=== PATIENT | male | born 1930 | race Caucasian/White ===

== ENCOUNTER 2017-04-22 11:09 | Inpatient (IN) ==
[2017-04-22] MEDS ORDERED: ZOFRAN IV ONE (11:33)
[2017-04-22 11:50] LABS: MANUAL DIFF NEEDED? NO
[2017-04-22 11:54] LABS: BASO% 0.4 % (0.0-0.8); EOS# 0.27 X1000 (0.0-0.7); HEMOGLOBIN 13.7 g/dL (14.0-18.0); IMM GRAN# 0.01 X1000 (0.0-0.04); IMM GRAN% 0.1 % (0.0-0.5); LYMPH# 1.09 X1000 (1.2-3.4); LYMPH% 16.3 % (20.5-51.1); MCH 31.4 PG (27-31); MCHC 33.4 g/dL (33-37); MONO# 0.55 X1000 (0.11-0.59); MONO% 8.2 % (1.7-9.3); MPV 11.3 FL (7.4-10.4); PLT 101 X1000 (130-400); RBC 4.36 XMIL (4.7-6.1)
[2017-04-22] MEDS ORDERED: CARDIZEM IV ONE (11:58)
[2017-04-22 12:12] LABS: AGAP 12; ALBUMIN 4.5 g/dL (3.5-5.0); ALKALINE PHOSPHATASE 38 U/L (32-122); BUN 24 mg/dL (8-22); CALCIUM 9.3 mg/dL (8.8-10.2); CHLORIDE 103 mmol/L (98-107); CK PROFILE 109 U/L (24-204); COSMO 283; GOT 33 U/L (10-34); GPT 20 U/L (10-44); MAGNESIUM 2.1 mg/dL (1.5-2.7); POTASSIUM 4.5 mmol/L (3.5-5.1); SODIUM 137 mmol/L (136-145); TCO2 22 mmol/L (25-35)
[2017-04-22 12:16] LABS: INR 1.09 (0.86-1.15); PROTIME 14.4 Seconds (12.1-15.5)
--- NOTE | 2017-04-22 12:48 | EKG Report ---
Test Performed on : 04/22/2017 12:44:04 PM Test Reason : CHEST PAIN Blood Pressure : / mmHG Vent. Rate : 049 BPM Atrial Rate : 049 BPM P-R Int : 230 ms QRS Dur : 088 ms QT Int : 490 ms P-R-T Axes : 044 -15 061 degrees QTc Int : 442 ms Sinus bradycardia. with 1st degree AV block. Nonspecific T wave abnormality Abnormal ECG When compared with ECG of 03-JUN-2015 00:16, OR interval has increased Vent. rate has decreased BY 24 BPM Criteria for Inferior infarct are no longer present Unconfirmed Result
--- NOTE | 2017-04-22 13:13 | Diag Imaging Result Doc PS360 ---
FLAT/UPRIGHT ABD/1 VIEW CHEST - 04/22/2017 INDICATION: WEAKNESS, CONSTIPATION TECHNIQUE: Three views COMPARISON: 06/03/2015 FINDINGS: The chest is clear. There are stable thoracolumbar spine fusion rods. Stable degeneration throughout the spine with no acute bony lesions. There is an IVC filter present at about L2. There is a nonobstructive bowel gas pattern with no free air. There are several phleboliths in the pelvis. IMPRESSION: No acute disease. Electronically signed by Deandre Carter 04/22/2017 1:11 PM
[2017-04-22] MEDS ORDERED: NITROGLYCERIN SL ONE (13:20)
[2017-04-22] MEDS ORDERED: CATAPRES PO ONE (13:20)
--- NOTE | 2017-04-22 13:42 | PROVIDER DOCUMENTATION ---
HPI-General Adult - General Chief Complaint: Weakness Stated Complaint: weakness Time Seen by Provider: 04/22/17 11:18 Source: patient, family, EMS Allergies/Adverse Reactions: Patient Allergies Allergy/AdvReac Type Severity Reaction Status Date / Time No Known Allergies Allergy Verified 04/22/17 11:22 Home Medications: Home Medication List Medication Instructions Recorded Confirmed Last Taken Type Alfuzosin HCl [Alfuzosin HCl ER] 10 mg PO DAILY 04/22/17 04/22/17 Unknown History Carvedilol 12.5 mg PO BID 04/22/17 04/22/17 Unknown History Colesevelam HCl [Welchol] 1,250 mg PO BID 04/22/17 04/22/17 Unknown History Fenofibric Acid D.r. [Trilipix] 135 mg PO DAILY 04/22/17 04/22/17 Unknown History Meloxicam 15 mg PO DAILY 04/22/17 04/22/17 Unknown History SIMVAstatin [Zocor] 40 mg PO HS 04/22/17 04/22/17 Unknown History Sitagliptin Phos/Metformin HCl 1,000 mg PO DAILY 04/22/17 04/22/17 Unknown History [Janumet 50-1,000 mg Tablet] - History of Present Illness -Gen Adult Nature of Presenting Problems: PT ARRIVED VIA EMS WITH C/O WEAKNESS THAT HAS BEEN PRESENT OVER "SEVERAL MONTHS " BUT THIS MORNING BECAME WORSE AND HE WAS UNABLE TO STAND AND AMBULATE AROUND HIS HOUSE. EMS STS FOUL SMELLING URINE WHEN THEY ARRIVED. PT SON AT BEDSIDE. PT ALSO C/O NAUSEA, CONSTIPATION. DENIES CHANGE IN COLOR OF STOOL, SOB, OR ABD PAIN. DENIES FALL OR INJURY. Location of Pain/Injury: reports: none Pain Radiation: reports: no radiation Quality of Pain: reports: none Onset/Duration: reports: this morning Timing: reports: still present Associated Symptoms: reports: constipation, fatigue, genitourinary problems, nausea, weakness. denies: anxiety, arm pain, back/neck pain, chest pain, cough , diaphoresis, diarrhea, dizziness, EENT symptoms, fever/chills, headaches, heartburn, joint pain, muscle aches, rash, shortness of breath, swelling/mass in abdomen, syncope, vomiting Similar Symptoms Previously?: Yes (SON STS SIMILAR SX WITH UTI) Recently seen or treated by another doctor?: No Review of Systems - Adult - REVIEW OF SYSTEMS - ADULT Constitutional: reports: magdalena. denies: chills, fever Eyes: reports: no symptoms reported. denies: discharge, blurred vision, double vision Ears, Nose, Mouth & Throat: reports: no symptoms reported. denies: tinnitus, sinus problem, throat pain Cardiovascular: reports: no symptoms reported. denies: chest pain, palpitations , syncope Respiratory: reports: no symptoms reported. denies: cough, dyspnea on exertion , shortness of breath Gastrointestinal: reports: see HPI, constipation, nausea. denies: abdominal pain, hematemesis, diarrhea, difficulty swallowing, frequent heartburn, poor appetite, rectal bleeding, vomiting Genitourinary: reports: frequency, hematuria, incontinence, urgency Musculoskeletal: reports: see HPI, muscle weakness. denies: muscle aches Integumentary: reports: no symptoms reported. denies: hives, rash, skin sores/ ulcer Neurological: reports: no symptoms reported. denies: dizziness/vertigo, headache/migraines, loss of balance, slurred speech, syncope, tremors Psychiatric: reports: no symptoms reported Endocrine: reports: no symptoms reported Hematologic/Lymphatic: reports: no symptoms reported Allergic/Immunologic: reports: no symptoms reported All Other Systems: Reviewed and Negative Past History - Adult - PAST MEDICAL HISTORY-ADULT Review of Records: reports: Old Records Reviewed, Nursing Assessment Review, Medications Reviewed, Social history reviewed & non-contributory. Major Childhood Illnesses: reports: denies history Cardiovascular: reports: HTN, hyperlipidemia Genitourinary: reports: incontinence, other (BPH) Musculoskeletal: reports: neck/back injury Endocrine/Immune: reports: Diabetes Diabetes Type: Type 2 - PRIOR SURGERIES/PROCEDURES Surgical/Procedure History: reports: back/neck Physical Exam-General - PHYSICAL EXAM-ADULT Initial Vital Signs Reviewed: Yes - CONSTITUTIONAL General Appearance: appears well, alert, no apparent distress. negative: anxious, lethargic - EYES Eyes: PERRL/EOMI - HEAD, EARS, NOSE, MOUTH & THROAT HENMT: normocephalic/atraumatic, moist mucous membranes, normal ENT inspection - NECK Neck: non-tender, full range of motion, supple, normal inspection - RESPIRATORY Respiratory: chest non-tender, lungs clear, normal breath sounds, no pleuratic chest pain, no respiratory distress, no accessory muscle use. negative: crackles, rales, rhonchi, wheezing - CARDIOVASCULAR Cardiovascular: normal peripheral pulses, bradycardia - GASTROINTESTINAL (ABDOMEN) Abdominal Exam: normal bowel sounds, non tender, soft, no organomegaly, no pulsatile mass. negative: distended, guarding, rigid, rebound, tenderness, hernia, mass - LYMPHATIC Lymphatic: no adenopathy - MUSCULOSKELETAL Back Exam: normal inspection, no CVA tenderness, no vertebral tenderness. negative: decreased range of motion, muscle spasm, vertebral tenderness Extremity: normal range of motion, non-tender - SKIN Integumentary: normal color, normal turgor, warm/dry. negative: cyanosis, diaphoresis, ecchymosis, rash - NEUROLOGIC Neurologic: grossly normal, no motor/sensory deficits. negative: aphasia, facial droop - PSYCHIATRIC Psych/Mental Status: normal mood/affect, oriented x 3 Progress - PLAN OF CARE/RESULTS Progress/Plan/Lab Results: Vital Signs - 8 hr 04/22/17 11:10 Temperature 97.6 F Pulse Rate 57 L Respiratory Rate 20 Blood Pressure 213/85 O2 Sat by Pulse Oximetry 97 Laboratory Results - last 24 hr 04/22/17 04/22/17 04/22/17 11:02 11:02 11:02 WBC RBC Hgb Hct MCV MCH MCHC RDW Std Deviation Plt Count MPV Immature Gran % (Auto) Neut % (Auto) Lymph % (Auto) [place] % (Auto) Eos % (Auto) Baso % (Auto) Immature Gran # (Auto) Neut # (Auto) Lymph # (Auto) [place] # (Auto) Eos # (Auto) Baso # (Auto) PT INR APTT (Factor Assay) D-Dimer Sodium 137 Potassium 4.5 Chloride 103 Carbon Dioxide 22 L Anion Gap 12 BUN 24 H Creatinine 1.0 Estimated GFR/1.73 m2 > 60 BUN/Creatinine Ratio 24 Glucose 182 H Calculated Osmolality 283 Calcium 9.3 Magnesium 2.1 Total Bilirubin 0.70 AST 33 ALT 20 Alkaline Phosphatase 38 Creatine Kinase 109 Troponin T < 0.010 Saa-[id number] Pept 633 H Total Protein 7.0 Albumin 4.5 Globulin 3.0 Albumin/Globulin Ratio 2.0 04/22/17 04/22/17 11:02 11:02 WBC 6.67 RBC 4.36 L Hgb 13.7 L Hct 41.0 L MCV 94.0 MCH 31.4 H MCHC 33.4 RDW Std Deviation 13.5 Plt Count 101 L MPV 11.3 H Immature Gran % (Auto) 0.1 Neut % (Auto) 71.0 Lymph % (Auto) 16.3 L [place] % (Auto) 8.2 Eos % (Auto) 4.0 Baso % (Auto) 0.4 Immature Gran # (Auto) 0.01 Neut # (Auto) 4.72 Lymph # (Auto) 1.09 L [place] # (Auto) 0.55 Eos # (Auto) 0.27 Baso # (Auto) 0.03 PT 14.4 INR 1.09 APTT (Factor Assay) 28.0 D-Dimer 2.51 H Sodium Potassium Chloride Carbon Dioxide Anion Gap BUN Creatinine Estimated GFR/1.73 m2 BUN/Creatinine Ratio Glucose Calculated Osmolality Calcium Magnesium Total Bilirubin AST ALT Alkaline Phosphatase Creatine Kinase Troponin T Gbt-H-Qcyurljawve Pept Total Protein Albumin Globulin Albumin/Globulin Ratio Orders Category Date Time Status Cardiac Monitoring DIRECTED Care 04/22/17 11:32 Active ANGIOGRAM/PULMONARY ARTERIES [CT] Stat Exams 04/22/17 13:16 Ordered FLAT/UPRIGHT ABD/1 VIEW CHEST [RAD] Stat Exams 04/22/17 11:59 Completed CBC WITH ELECTRONIC DIFF [HEME] Stat Lab 04/22/17 11:02 Completed CK PROFILE [SP CHEM] Stat Lab 04/22/17 11:02 Completed COMPREHENSIVE METABOLIC PANEL [CHEM] Stat Lab 04/22/17 11:02 Completed D-DIMER PL [COAG] Stat Lab 04/22/17 11:02 Completed MAGNESIUM [CHEM] Stat Lab 04/22/17 11:02 Completed PRO B-NATRIURETIC PEPTIDE Stat Lab 04/22/17 11:02 Completed PR[address]IME WITH INR PL [COAG] Stat Lab 04/22/17 11:[address] [COAG] Stat Lab 04/22/17 11:02 Completed TROPONIN T Stat Lab 04/22/17 11:[address] W/POSS RFLX CULT [URINALYSIS] Stat Lab 04/22/17 11:34 Uncollected Clonidine [Catapres] Med 04/22/17 13:20 Discontinued 0.1 mg PO NOW ONE Diltiazem [Cardizem] Med 04/22/17 11:58 Discontinued 20 mg IV NOW ONE Nitroglycerin Sl [Nitroglycerin] Med 04/22/17 13:20 Discontinued 0.4 mg SL NOW ONE Ondansetron [Zofran] Med 04/22/17 11:33 Discontinued 4 mg IV NOW ONE EKG [EKG] Stat Ther 04/22/17 11:32 Draft Result Diagrams: 04/22/17 11:02 04/22/17 11:02 - REASSESSMENT Reassessment #1 Time Reassessed: 11:55 (SPOKE WITH DR. HERNANDEZ RE: PT HTN. CARDIZEM ORDERED PER MD.) Status: unchanged Reassessment #2 Time Reassessed: 13:00 (SPOKE WITH DR. HERNANDEZ RE: PT CONDITION AND LABS. MD EVALUATED PT AND GAVE ORDERS FOR BP MEDS, CT.) Status: unchanged - XRAY 1 XRAY Study: Chest, Abdomen Impression: Normal, See EMR Report XRAY Interpretation: NO ACUTE FINDINGS. IVC FILTER PRESENT.-DR. WHARTON - CT/MRI 1 CT Study: Angiogram (PULM ARTERIES) Impression: See EMR Report CT Results: BORDERLINE CARDIOMEGALY. OTHER NORMAL.-DR. WHARTON - CONSULTS/PCP/HOSPITALIST Notification #1 *Consult/PCP/Hospitalist*: DR. VILLA Time Discussed: 15:46 Reason/Comments: MD FAUSTO WILL COME SEE IN ER AND ADMIT. Consult Disposition: Will see in ED Departure - Departure Date of Disposition Decision: 04/22/17 Time of Disposition Decision: 15:44 DIAGNOSIS: Weakness Disposition: ADMITTED INPATIENT 09 Certified Medical Emergency: Emergent Condition: Stable Referrals and Follow-Ups: None,PCP [Primary Care Provider] - - Critical Care Note This patient required my direct & personal management of CC.: No
--- NOTE | 2017-04-22 13:54 | Diag Imaging Result Doc PS360 ---
ANGIOGRAM/PULMONARY ARTERIES - 04/22/2017 INDICATION: WEAKNESS, ELEVATED D-DIMER TECHNIQUE: Axial CT images were obtained after administering intravenous contrast. Coronal MIP images were generated. A CT dose reduction protocol was used. COMPARISON: None FINDINGS: There is extensive patient motion artifact. No large pulmonary embolism. There is borderline cardiomegaly. There is some dependent atelectasis. No infiltrates. There are extensive fusion rods along the thoracolumbar spine. No hardware complications. No acute bony lesions. IMPRESSION: Perhaps borderline cardiomegaly, but no acute disease. Electronically signed by Deandre Carter 04/22/2017 1:51 PM
[2017-04-22 14:10] LABS: URINE CULTURE PL NEEDED? NO
[2017-04-22 14:29] LABS: BILIRUBIN URINE NEGATIVE (NEGATIVE); BLOOD URINE TRACE (NEGATIVE); CLARITY CLEAR (CLEAR); COLOR YELLOW; LEUKOCYTES URINE NEGATIVE (NEGATIVE); NITRITE URINE NEGATIVE (NEGATIVE); PH URINE 6.5; PROTEIN URINE 2+(100 mg/dL) mg/dL (NEGATIVE); URINE EPITHELIAL CELLS <10 /HPF (<10); URINE RBC <10 /HPF (<10); URINE SOURCE CLEAN CATCH; URINE WBC <10 /HPF (<10); UROBILINOGEN URINE NORMAL
[2017-04-22] MEDS ORDERED: LASIX IV ONE (15:27)
--- NOTE | 2017-04-22 16:50 | Diag Imaging Result Doc PS360 ---
EXAM: HEAD W/O CONTRAST HISTORY: weakness,dizziness,htn TECHNIQUE: Images were obtained from the skull base to vertex without IV contrast as per standard protocol. COMPARISON: None. FINDINGS: There are no extra-axial collections. There is no evidence for acute infarct or hemorrhage. There is no midline shift or mass effect. There is no hydrocephalus. There is diffuse cerebral atrophy. There are vascular calcifications. There is patchy hypodensity throughout the deep white matter which is nonspecific in appearance but likely related to microvascular disease. IMPRESSION: No acute intracranial abnormality is appreciated. Atrophy and microvascular disease. Electronically signed by Nicole Couch 04/22/2017 4:48 PM
--- NOTE | 2017-04-22 16:51 | HISTORY AND PHYSICAL ---
PRIMARY CARE PHYSICIAN: Sammy Cheema MD. CHIEF COMPLAINT: Weakness, dizziness, unable to stand or ambulate. HISTORY OF PRESENTING ILLNESS: This is an 86-year-old male who presented to [facility] ER with complaints of generalized weakness, dizziness, and this a.m. states that he was unable to stand up and unable to ambulate independently , so he called 911 for evaluation. Workup showed on arrival a blood pressure of 213/85 and a D- dimer of 2.51. A pulmonary arteriogram was obtained that showed no large pulmonary embolism, borderline cardiomegaly, but no acute disease, so he is being admitted for further evaluation and treatment. PAST MEDICAL HISTORY: Hypertension, hyperlipidemia, diabetes type 2. PAST SURGICAL HISTORY: Back surgery and IVC filter placement. FAMILY HISTORY: Noncontributory. SOCIAL HISTORY: Currently lives alone. Denied any tobacco, alcohol, or illicit drug use. ALLERGIES: He has no known drug allergies. HOME MEDICATIONS: He takes alfuzosin 10 mg p.o. daily. Carvedilol 12.5 mg p.o. b.i.d. Welchol 1250 mg p.o. b.i.d. Fenofibric acid 135 mg p.o. daily. Meloxicam 15 mg p.o. daily. Simvastatin 40 mg p.o. at bedtime. Janumet one p.o. daily. LABORATORY AND IMAGING: Showed a white blood cell count of 6.67, hemoglobin 13.7, hematocrit 41, platelets 101,000. PT and INR were 14.4 and 1.09 with a D-dimer of 2.51. Sodium 137, potassium 4.5, chloride 103, CO2 of 22, BUN 24, creatinine 1.0, glucose 182. Magnesium 2.1. Creatine kinase 109 with a troponin of less than 0.010, proBNP of 633. Urinalysis was negative. Abdomen x-ray showed no acute disease. Pulmonary arteriogram showed an impression of perhaps borderline cardiomegaly, but no acute disease. No large pulmonary embolism. He had an EKG that showed sinus bradycardia with a first-degree AV block at 49. REVIEW OF SYSTEMS: He denied any fever, chills, or blurred vision. He was positive for dizziness, generalized weakness, inability to stand or ambulate independently. He denied any abdominal pain, constipation, diarrhea, burning or hurting with urination. PHYSICAL EXAMINATION: VITAL SIGNS: Temperature 97.6 degrees, pulse 57, respirations 20, blood pressure 213/85, saturating 97% on room air. GENERAL: This is an 86-year-old male who is sitting up in the bed. Is noted to be hard of hearing, but answers questions appropriately. HEENT: Normocephalic and atraumatic. Pupils are equal, round, and reactive to light. The extraocular movements are intact. Oropharynx and nares are clear. NECK: Supple. LUNGS: Clear to auscultation bilaterally, with equal lung expansion and chest wall movement. HEART: Regular rate and rhythm. No murmurs, rubs, or gallops. ABDOMEN: Soft, nontender, nondistended. Bowel sounds are present x4 quadrants. EXTREMITIES: No clubbing, cyanosis, or edema. NEUROLOGIC: The cranial nerves 2-12 appear grossly intact. ASSESSMENT: 1. Generalized weakness. 2. Dizziness. 3. Elevated D-dimer. 4. Hypertension. 5. Diabetes type 2. PLAN: It is noted in the emergency room that he has had the following 1-time doses: 1. Clonidine 0.1 mg x1. 2. Cardizem 20 mg IV x1. 3. Lasix 40 mg IV x1. 4. Nitroglycerin 0.4 mg sublingually x1. 5. Zofran 4 mg IV x1. We will also check a CT of the head without contrast. He will be admitted to the medical unit, placed on telemetry, diabetic diet, and physical therapy. We will review the CT of the head results once the test is obtained. Recheck a CBC and a BMP. We will monitor his vital signs q.4 hours and we will do a bilateral venous Doppler of his lower extremities in the a.m. Pt is a full code. Dictated by CATHI Sandoval for Asael Almendarez MD cc: CATHI Sandoval MD Jay Pohl, MD I have seen and examined patient and I agree with the outline plan. Severe Hypertension Syncope. rkq MTDD
[2017-04-22] MEDS ORDERED: ZOFRAN IV PRN (17:17)
[2017-04-22] MEDS: NS 1,000 ML IV SCH (18:17)
[2017-04-22] MEDS: WELCHOL PO SCH (20:08)
[2017-04-22] MEDS: COREG PO SCH (20:08)
[2017-04-22] MEDS: ZOCOR PO SCH (20:08)
[2017-04-23 06:29] LABS: MANUAL DIFF NEEDED? NO
[2017-04-23 06:36] LABS: BASO% 0.3 % (0.0-0.8); EOS# 0.18 X1000 (0.0-0.7); EOS% 2.4 % (0.0-10.0); HEMATOCRIT 41.3 % (42.0-52.0); HEMOGLOBIN 13.7 g/dL (14.0-18.0); IMM GRAN# 0.03 X1000 (0.0-0.04); IMM GRAN% 0.4 % (0.0-0.5); LYMPH# 1.19 X1000 (1.2-3.4); LYMPH% 15.8 % (20.5-51.1); MCH 31.4 PG (27-31); MCHC 33.2 g/dL (33-37); MCV 94.5 FL (81-99); MONO# 0.72 X1000 (0.11-0.59); MONO% 9.6 % (1.7-9.3); MPV 10.9 FL (7.4-10.4); NEUT% 71.5 % (42.2-75.2); PLT 102 X1000 (130-400); RBC 4.37 XMIL (4.7-6.1)
[2017-04-23] MEDS: NS 1,000 ML IV SCH (06:49)
[2017-04-23 06:58] LABS: AGAP 10; BUN 24 mg/dL (8-22); CALCIUM 9.1 mg/dL (8.8-10.2); CHLORIDE 103 mmol/L (98-107); COSMO 284; POTASSIUM 3.8 mmol/L (3.5-5.1); SODIUM 139 mmol/L (136-145); TCO2 26 mmol/L (25-35)
[2017-04-23] MEDS: JANUVIA PO SCH (09:08)
[2017-04-23] MEDS: UROXATRAL PO SCH (09:09)
[2017-04-23] MEDS: WELCHOL PO SCH ×2 (09:09→21:50)
[2017-04-23] MEDS: GLUCOPHAGE PO SCH (09:09)
[2017-04-23] MEDS: TRICOR PO SCH (09:09)
[2017-04-23] MEDS: COREG PO SCH (09:10)
[2017-04-23] MEDS ORDERED: COREG PO SCH (09:31)
[2017-04-23] MEDS ORDERED: PRINIVIL PO SCH (09:45)
--- NOTE | 2017-04-23 10:51 | Extremity Venous Study ---
EXAM: Venous U/S Left Leg HISTORY: elevated d-dimer TECHNIQUE: Venous ultrasound of the left lower extremity with compression and color Doppler COMMENT: There is incompressibility of the left common femoral, femoral, popliteal and peroneal veins which do demonstrate color Doppler flow. There is also thrombosis of the saphenofemoral junction but not the great saphenous vein. IMPRESSION: Chronic deep venous thrombosis without occlusion as described. Electronically signed by Alejandro Marmolejo 04/23/2017 10:49 AM
--- NOTE | 2017-04-23 15:08 | PROGRESS NOTE ---
DATE: 04/23/2017 Today Mr. Collier refers to be feeling a little stronger. Mr. Collier got admitted yesterday after he has been complaining of some generalized weakness for some time associated with an episode that he described as falling down, felt a little dizzy and then fell down after he stood up to go to the restroom. Upon presentation, his blood pressures were very high, pulse was low. Patient was admitted for further medical care. Today he refers to be doing a lot better. His vitals currently blood pressure is 167/72, pulse is 61, respirations 18, temperature 97.6 degrees. Of note patient's blood pressure in supine was 155/80, pulse was 64 and his blood pressure standing is 127/56. There is about 28 difference in the systolic blood pressure. The pulse did not change much I guess because patient is on beta fina. GENERAL EXAM: Mr. Collier is an 86-year-old very pleasant, male. He is in bed, not seemingly distressed.HEENT: Mucosa was slightly dry. Anicteric. Acyanotic. Neck: Neck is supple. Chest: Good air entry bilateral. No crepitations. No rhonchi. Cardiovascular: Regular rate and rhythm. No murmurs. Abdomen: Soft, nontender. Extremities: No pedal edema. VICE PRESIDENT OF ENGINEERING: Patient is awake and alert and oriented. There is no focal neurological deficit. LABORATORY DATA: WBC is 7.51, hemoglobin is 13.7, platelet count of 102,000. Chemistry is reviewed. Completely normal. Glucose is 135, and his random glucose have slightly been on the higher end. Doppler ultrasound shows chronic venous thrombosis without occlusion of the left. ASSESSMENT: 1. Syncope likely due to underlying orthostatic hypotension as well as bradycardia. 2. Bradycardia on presentation. Patient is on a beta fina (carvedilol). 3. Orthostatic hypotension. There is a significant 28 difference when patient stands up, that it drops and this is after patient has been given some fluid. So we are going to continue with the IV fluids. We will be discontinuing the carvedilol. Hopefully the patient continues to show improvement. 4. Uncontrolled hypertension. The patient was on carvedilol 12.5. He does not really seem to have any cardiac history and because of the bradycardia I have discontinued the carvedilol and started him on lisinopril and will titrate it accordingly. 5. Diabetes mellitus controlled. 6. 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 The patient has a history of IVC filter placed a time ago and probably this is just a manifestation of an old DVT. We are not going to treat it. cc: Asael Almendarez MD
[2017-04-23] MEDS ORDERED: NORVASC PO ONE (21:09)
[2017-04-23] MEDS ORDERED: PRINIVIL PO ONE (21:10)
[2017-04-23] MEDS ORDERED: APRESOLINE IV PRN (21:10)
[2017-04-23] MEDS: ZOCOR PO SCH (21:50)
[2017-04-24] MEDS: NS 1,000 ML IV SCH ×2 (00:44→14:17)
[2017-04-24 07:03] LABS: AGAP 10; BUN 20 mg/dL (8-22); CALCIUM 8.6 mg/dL (8.8-10.2); CHLORIDE 107 mmol/L (98-107); COSMO 284; POTASSIUM 3.6 mmol/L (3.5-5.1); SODIUM 140 mmol/L (136-145); TCO2 23 mmol/L (25-35)
[2017-04-24] MEDS: GLUCOPHAGE PO SCH (08:53)
[2017-04-24] MEDS: WELCHOL PO SCH ×2 (08:56→20:10)
[2017-04-24] MEDS: PRINIVIL PO SCH (08:56)
[2017-04-24] MEDS: NORVASC PO SCH (08:56)
[2017-04-24] MEDS: TRICOR PO SCH (08:56)
[2017-04-24] MEDS: JANUVIA PO SCH (08:56)
[2017-04-24] MEDS: UROXATRAL PO SCH (08:57)
--- NOTE | 2017-04-24 13:06 | PROGRESS NOTE ---
DATE: 04/24/2017 SUBJECTIVE: Today Mr. Collier refers to be doing a lot better. Continues to be slightly weak but he feels a whole lot stronger than before. OBJECTIVE: Vital signs: Blood pressure is 166/70, pulse of 99, I am not sure if this pulse is correct . When I checked it myself it was 64. Respiration is 18, temperature 97.5 degrees. General: Mr. Collier 86-year-old male, he is in bed, does not seem to be in any remarkable distress. HEENT: Mucosa is pink and moist. Anicteric. Acyanotic. Neck: Supple. Chest: Good air entry bilaterally. No crepitations. No rhonchi. Cardiovascular: Regular rate and rhythm. Abdomen: Soft, nontender. Extremities: No pedal edema. CHANNELING MACHINE OPERATOR: Patient is awake and alert and oriented x4. There is no focal neurological deficit. LABORATORY DATA: Chemistries reviewed completely normal. Review of physical therapy notes showed that the patient was able to walk about 25 feet full weightbearing with some contact guard assistance. Assistive device use was a front wheel walker. It was noted that the patient shuffles his feet when ambulating and recommended that patient may go to rehab or physical therapy following his hospital stay. ASSESSMENT: 1. Syncope at home likely due to underlying orthostatic hypotension as well as bradycardia. Both of them have been improved and patient is doing a lot better. 2. Bradycardia on presentation which we attribute this to the beta fina that the patient was on. This was discontinued and pulse has significantly improved. 3. Orthostatic hypotension secondary to volume depletion improved. 4. Uncontrolled hypertension. Blood pressure is a whole lot better today with the changes that we made in the medication. We however ordered lab work and a duplex ultrasound of the renal arteries to make sure we are not missing any secondary cause of hypertension. 5. Diabetes mellitus controlled. 6. Chronic deep vein thrombosis on the left leg. No need for acute anticoagulation. So in general Mr. Collier is relatively stable. Blood pressure is now corrected and pulse is better and hydration has improved. He is ready for discharge. However from physical therapy note he is still weak to be at home on his own so we recommend he goes to a rehab for adequate physical rehabilitation and get his strength back. We have consulted social media strategist to get us a placement for him. cc: Asael Almendarez MD
[2017-04-24] MEDS: ZOCOR PO SCH (20:10)
[2017-04-25] MEDS: NS 1,000 ML IV SCH ×3 (06:24→20:14)
[2017-04-25 06:25] LABS: HEMOGLOBIN A1C 5.9 % (4.8-6.0)
[2017-04-25 06:45] LABS: HDL 42 mg/dL (35-55); LDL 56 mg/dL; TRIGLYCERIDES 145 mg/dL (39-160); VLDL 29 mg/dL
[2017-04-25] MEDS: UROXATRAL PO SCH (09:11)
[2017-04-25] MEDS: PRINIVIL PO SCH (09:12)
[2017-04-25] MEDS: GLUCOPHAGE PO SCH (09:12)
[2017-04-25] MEDS: JANUVIA PO SCH (09:12)
[2017-04-25] MEDS: NORVASC PO SCH (09:13)
[2017-04-25] MEDS: WELCHOL PO SCH ×2 (09:13→20:14)
[2017-04-25] MEDS: TRICOR PO SCH (09:13)
--- NOTE | 2017-04-25 10:40 | Diag Imaging Result Doc PS360 ---
EXAM: DUPLEX RENAL ARTY OR VEIN LMTD HISTORY: severe hypertension TECHNIQUE: COMPARISON: None. FINDINGS: The right kidney measures 13.1 x 5.9 x 7.1 cm. Normal echotexture and cortical thickness. No hydronephrosis. Segmental arterial pressures obtained. Right renal artery ratio is 1.1. Resistive index is 0.72. The left kidney measures 13.7 x 6.3 x 6.3 cm. Normal echotexture. No hydronephrosis. Arterial pressures obtained. Left renal artery ratio is 1.3. Resistive index is 0.73. IMPRESSION: No evidence of renal artery stenosis. Electronically signed by Almas Upton 04/25/2017 10:38 AM
--- NOTE | 2017-04-25 11:39 | PROGRESS NOTE ---
DATE: 04/25/2017 SUBJECTIVE: Mr. Collier refers to be doing a lot better today. He is still week but, as per the patient, he feels stronger. As per the nurses, this patient has been having confusion mostly during the night. When I evaluated this patient today, he was alert. He was oriented x3. He knows he is in the hospital. He does not remember which one though. OBJECTIVE: Vital Signs: Temperature 97.8 degrees, pulse 66, respiratory rate 17, blood pressure 159/62, oxygen saturation 99% on room air. HEENT: Head normocephalic. No trauma. PERRLA. Neck supple. No JVD. No masses. Central trachea. Chest: Clear to auscultation. No wheezing. No rales. Cardiovascular: RRR. Abdomen soft, nontender. Extremities: No edema. No clubbing. No cyanosis. Neurologic: The patient is alert. She is oriented x3 but apparently she has been having confusion mostly during the night. No focal neurological deficits. LABORATORY DATA: Hemoglobin A1c 5.9. ASSESSMENT AND PLAN: 1. Syncope at home likely due to underlying orthostatic hypotension and bradycardia. Both of them have been improved and the patient is doing better. 2. Bradycardia as above. Probably, this was related to a beta fina and this medication has been discontinued. 3. Orthostatic hypotension secondary to volume depletion, improved. 4. Uncontrolled hypertension. Continue with the same management. 5. Renal artery ultrasound has been done, pending report. 6. Type 2 diabetes, controlled. 7. 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 No need for anticoagulation at this moment. This patient is doing a whole lot better, however, from the note from physical therapy, he is still weak to be at home by himself and they recommended to send this patient to a rehab center so he can get stronger. tree and shrub worker is on board. We will continue to monitor this patient. cc: Hector Grace MD
[2017-04-25] MEDS: ZOCOR PO SCH (20:14)
[2017-04-26] MEDS: RESTORIL PO PRN ×2 (02:42→21:35)
[2017-04-26 06:25] LABS: MANUAL DIFF NEEDED? NO
[2017-04-26 06:42] LABS: BASO% 0.3 % (0.0-0.8); EOS# 0.19 X1000 (0.0-0.7); EOS% 2.8 % (0.0-10.0); HEMATOCRIT 38.8 % (42.0-52.0); HEMOGLOBIN 13.1 g/dL (14.0-18.0); IMM GRAN# 0.03 X1000 (0.0-0.04); IMM GRAN% 0.4 % (0.0-0.5); LYMPH# 1.07 X1000 (1.2-3.4); MCH 31.8 PG (27-31); MCHC 33.8 g/dL (33-37); MCV 94.2 FL (81-99); MONO# 0.62 X1000 (0.11-0.59); MONO% 9.3 % (1.7-9.3); MPV 11.2 FL (7.4-10.4); NEUT% 71.2 % (42.2-75.2); PLT 97 X1000 (130-400); RBC 4.12 XMIL (4.7-6.1)
[2017-04-26 06:56] LABS: AGAP 12; BUN 17 mg/dL (8-22); CALCIUM 8.7 mg/dL (8.8-10.2); CHLORIDE 107 mmol/L (98-107); COSMO 283; POTASSIUM 3.4 mmol/L (3.5-5.1); SODIUM 140 mmol/L (136-145); TCO2 21 mmol/L (25-35)
[2017-04-26] MEDS ORDERED: KLOR-CON PO ONE (07:19)
[2017-04-26] MEDS: JANUVIA PO SCH (07:49)
[2017-04-26] MEDS: NS 1,000 ML IV SCH ×2 (07:49→21:35)
[2017-04-26] MEDS: GLUCOPHAGE PO SCH (07:49)
[2017-04-26] MEDS ORDERED: DULCOLAX PR ONE (07:56)
[2017-04-26] MEDS: UROXATRAL PO SCH (08:45)
[2017-04-26] MEDS: NORVASC PO SCH (08:45)
[2017-04-26] MEDS: MIRALAX PO SCH (08:45)
[2017-04-26] MEDS: WELCHOL PO SCH ×2 (08:45→21:35)
[2017-04-26] MEDS: TRICOR PO SCH (08:45)
[2017-04-26] MEDS: PRINIVIL PO SCH (08:45)
--- NOTE | 2017-04-26 10:45 | PROGRESS NOTE ---
DATE: 04/26/2017 SUBJECTIVE: Mr. Collier refers to be doing a lot a lot better today. He was complaining of constipation but after MiraLAX per mouth and Dulcolax suppository, he had a large bowel movement. He is not complaining of chest pain or shortness of breath. He is oriented x3. He is complaining of mild back soreness. OBJECTIVE: Vital Signs: Temperature 98.7 degrees, pulse 72, respiratory rate 20, blood pressure 150/67, oxygen saturation 98 on room air. HEENT: Normocephalic. No trauma. PERRLA. Neck: Supple. No JVD. No masses. Central trachea. Chest: Clear to auscultation. No wheezing. No rales. Cardiovascular: Regular rate and rhythm. Abdomen: Soft, nontender, nondistended. No hepatosplenomegaly. Extremities: No edema. No clubbing. No cyanosis. Neurological: The patient is alert and oriented x3. But apparently he has been on and off confused during the night. No focal neurological deficits. LABORATORY: WBC 6.6, hemoglobin 13.1, hematocrit 38.8, platelets 97,000. Sodium 140, potassium 3.4, chloride 107, bicarbonate 21, BUN 17 creatinine 0.8, glucose 128, calcium 8.7. ASSESSMENT: 1. Syncope at home likely due to underlying orthostatic hypotension and bradycardia. Both of them have been improved and the patient is doing a lot better. 2. Bradycardia as above. Probably, this was related to a beta fina. This medication has been discontinued. 3. Orthostatic hypotension secondary to volume depletion. Improved. 4. Uncontrolled hypertension. Continue with the same management, better controlled now. We did a renal ultrasound that did not show any stenosis of the renal artery. 5. Type 2 diabetes controlled. 6. 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 No need for anticoagulation at this moment. PLAN: This patient is doing a whole lot better. However, from the notes from physical therapy, he is too weak to be at home by himself and they recommended to send this patient to a rehab center so he can get his strength back. 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 We will continue to monitor. Just pending placement. cc: Hector Grace MD
[2017-04-26] MEDS: ZOCOR PO SCH (21:35)
[2017-04-27 08:05] LABS: AGAP 10; BUN 19 mg/dL (8-22); CALCIUM 8.9 mg/dL (8.8-10.2); CHLORIDE 105 mmol/L (98-107); COSMO 276; POTASSIUM 3.4 mmol/L (3.5-5.1); SODIUM 137 mmol/L (136-145); TCO2 23 mmol/L (25-35)
[2017-04-27] MEDS: JANUVIA PO SCH (08:56)
[2017-04-27] MEDS: PRINIVIL PO SCH (08:56)
[2017-04-27] MEDS: MIRALAX PO SCH (08:56)
[2017-04-27] MEDS: WELCHOL PO SCH (08:56)
[2017-04-27] MEDS: GLUCOPHAGE PO SCH (08:56)
[2017-04-27] MEDS: UROXATRAL PO SCH (08:56)
[2017-04-27] MEDS: NORVASC PO SCH (08:57)
[2017-04-27] MEDS: TRICOR PO SCH (08:57)
[2017-04-27 12:17] VITALS: BP 132/55
--- NOTE | 2017-04-27 12:58 | DISCHARGE SUMMARY ---
ADMISSION DATE: 04/23/2017 DISCHARGE DATE: 04/27/2017 PRIMARY CARE PHYSICIAN: Dr. Sammy Cheema. DIAGNOSES: 1. Generalized weakness. 2. Dizziness. 3. Hypertension. 4. Bradycardia most likely related to beta fina use. 5. Orthostatic hypotension resolved. 6. Diabetes type 2. 7. Chronic deep vein thrombosis of the left leg no anticoagulation at present. DIAGNOSTICS: 04/22/2017 abdominal x-ray revealed no acute disease. Chest x-ray is clear. 04/22/2017 pulmonary arteriogram revealed borderline cardiomegaly but no acute disease. 04/22/2017 CT of the head. No acute intracranial abnormality is appreciated, atrophy and microvascular disease. 04/23/2017 extremity venous study. Chronic DVT without occlusion to the left common femoral, femoral, popliteal, peroneal veins which do demonstrate color Doppler flow. 04/25/2017 aorta and renal ultrasound reveals no evidence of renal artery stenosis. HOSPITAL COURSE: Mr. Collier presented to the emergency room with weakness and dizziness, unable to stand and ambulate. He was found to have a blood pressure of 213/85 with heart rates ranging from 51 to 54. He was orthostatic but after receiving fluid this did resolve after receiving hydration. Medications were adjusted. We did hold his beta-fina and his heart rate did increase. We continued his Norvasc as well as lisinopril and blood pressures have been in the 140s to 170 over 60s and 70s over the last 24 hours. He continues to be weak. He was evaluated by physical therapy who recommended inpatient rehab. He will be going to [facility] today. DISCHARGE PHYSICAL EXAMINATION: Cardiovascular: Regular rate and rhythm. S1 and S2 appreciated. Pulmonary: Breath sounds are clear. No increased work of breathing noted. Gastrointestinal: Abdomen is soft, nontender, nondistended. Bowel sounds in all 4 quadrants. Extremities: No clubbing, cyanosis or edema. Calves are nontender. Pulses are palpable x4. DISCHARGE MEDICATIONS: Uroxatral 10 daily, Norvasc 10 daily, Welchol 1250 b.i.d., TriCor 145 daily, Prinivil 20 mg daily, MiraLAX 17 g daily, Zocor 40 at bedtime, Janumet b.i.d. DISCHARGE ACTIVITY: Per physical therapy and OT recommendations and facility policy. DISCHARGE DIET: Diabetic. DISCHARGE VITAL SIGNS: Blood pressure is 175/70, heart rate is 67, respirations are 20, temperature is 98.4 degrees with room air saturations 91-99%. DISPOSITION: He is being discharged to rehab in stable condition. This is a greater than 30 minute discharge. Dictated by CATHI Escobar for Janak Garza MD cc: CATHI Escobar MD
--- NOTE | 2017-04-27 14:17 | Diag Imaging Result Doc PS360 ---
EXAM: CHEST-PORTABLE HISTORY: Placement TECHNIQUE: Portable COMPARISON: 04/22/2017 FINDINGS: The lungs are well expanded. The heart is not enlarged. The vessels are not distended. No pneumonia. No pleural effusions identified. Arthritic changes to the left acromio clavicular joint. IMPRESSION: No acute abnormality. Electronically signed by Almas Upton 04/27/2017 2:15 PM
== END 2017-04-27 16:30 ==
LOC: P.ED 11:09 → INTOOBSV 16:33 → P.MEDSURG 16:33 → SUATTDRO 04-23 13:20
PROVIDERS: ATTEND Family Medicine